=== PATIENT | male | born 1985 | race Caucasian/White ===

== ENCOUNTER → 2024-09-25 | Day surgery (SDC) | payer OTHER ==
[~2024-09-25] VITALS: Ht 170.2 cm; Wt 90.9 kg
[~2024-09-25] MED LIST: CeFAZolin 2 GM/DEXTROSE 50 ML IV ONE; FentaNYL CITRATE PF 100 MCG/2 ML VIAL ONE; LIDOCAINE/PF 1% 2 ML VIAL ID ONE; MIDAZOLAM HCL 2 MG/2 ML VIAL ONE; PROPOFOL 1% ISO-OSM 1000 MG/100 ML BOTTLE IV ONE; RINGERS SOLUTION,LACTATED 1,000 ML IV ONE
[2024-09-25] MEDS: CHLORHEXIDINE GLUCONATE 2% TOWELETTE [2'S/6'S] TP ONE (12:53)
[2024-09-25] MEDS: RINGERS SOLUTION,LACTATED 1,000 ML IV ONE (12:54)
[2024-09-25] MEDS: ETHYL ALCOHOL 62% ANTISEPTIC NASAL SANITIZER 0.6 ML AMPUL NASAL ONE (12:54)
[2024-09-25 13:07] LABS: PLATELET COUNT (AUTO) 265 K/uL (150-450); RED BLOOD CELL COUNT(AUTO) 4.56 MIL/uL (4.50-5.90); RED CELL DISTRIBUTION WIDTH 13.4 % (11.5-14.5); WHITE BLOOD COUNT (AUTO) 6.7 K/uL (4.5-11.0)
[2024-09-25] MEDS: CeFAZolin 2 GM/DEXTROSE 50 ML IV ONE (13:15)
[2024-09-25] MEDS: BUPIVACAINE HCL/PF 0.25% 30 ML VIAL ONE (13:30)
[2024-09-25] MEDS: LIDOCAINE/PF 1% 30 ML VIAL ONE (13:30)
[2024-09-25] MEDS: BACITRACIN 28 GM OINTMENT TP ONE (13:30)
== END | disposition still patient (30) ==
LOC: SURGERY 12:32
PROVIDERS: ATTEND Orthopaedic Surgery
DX: M65.841 Other synovitis and tenosynovitis, right hand (principal); Z72.89 Other problems related to lifestyle; G47.30 Sleep apnea, unspecified; Z79.899 Other long term (current) drug therapy
CPT/HCPCS: 26055; 85025; 36415; J3490 ×2; J3010; J2250; J2704; J7120; J0690